=== PATIENT | female | born 1970 | race Two or more races ===

== ENCOUNTER 2025-05-30 15:21 | Inpatient (IN) | payer OTHER ==
[~2025-05-30] VITALS: Ht 160 cm; Wt 123.3 kg
[2025-05-30] MEDS: CefTRIAXone 1 GM/DEXTROSE 50 ML IV ONE (16:34)
[2025-05-30] MEDS: SODIUM CHLORIDE 0.9% 1,000 ML IV ONE (16:34)
[2025-05-30 16:35] LABS: PLATELET COUNT (AUTO) 264 K/uL (150-450); RED BLOOD CELL COUNT(AUTO) 4.22 MIL/uL (4.00-5.20); RED CELL DISTRIBUTION WIDTH 14.3 % (11.5-14.5); WHITE BLOOD COUNT (AUTO) 8.1 K/uL (4.5-11.0)
[2025-05-30 16:38] LABS: ERYTHROCYTE SEDIMENTATION RATE 67 MM/HR (0-30)
[2025-05-30 16:40] LABS: CALCIUM, TOTAL 8.9 mg/dL (8.8-10.5); CREATININE 0.68 mg/dL (0.60-1.30); GLOMERULAR FILTR. RATE CALC > 60 mL/min (>60); GLUCOSE,RANDOM 185 mg/dL (70-110); SODIUM SERUM 142 mmol/L (136-145); UREA NITROGEN, BLOOD 12 mg/dL (7-18)
[2025-05-30 16:42] LABS: C-REACTIVE PROTEIN QUANT 4.77 mg/dL (0.00-0.30)
[2025-05-30 16:50] LABS: GLUCOMETER DEV NAME(LOC) ERT.7; GLUCOSE,POINT OF CARE 175 MG/DL (70-110)
[2025-05-30 17:00] LABS: LACTIC ACID 0.9 mmol/L (0.4-2.0)
[2025-05-30 18:37] VITALS: BP 149/77; PULSE 79; RESP 19; TEMP 98.1; O2SAT 96
[2025-05-30 19:13] VITALS: BP 137/76; PULSE 74; RESP 18; TEMP 97.3; O2SAT 97
[2025-05-30] MEDS ORDERED: MAGNESIUM HYDROXIDE SUSPENSION 30 ML UDCUP PO PRN (19:15)
[2025-05-30] MEDS ORDERED: ZOLPIDEM TARTRATE 5 MG TABLET PO PRN (19:15)
[2025-05-30] MEDS ORDERED: BISACODYL 10 MG RECTAL RECTAL SUPPOSITORY PR PRN (19:15)
[2025-05-30] MEDS ORDERED: DEXTROSE 50%-WATER 25 GM/50 ML SYRINGE IVP PRN (19:15)
[2025-05-30] MEDS ORDERED: MORPHINE SULFATE 2 MG/ML SYRINGE IVP PRN (19:15)
[2025-05-30] MEDS ORDERED: ONDANSETRON HCL 4 MG/2 ML VIAL IVP PRN (19:15)
[2025-05-30] MEDS ORDERED: ACETAMINOPHEN 325 MG TABLET PO PRN (19:15)
[2025-05-30] MEDS: *CLINICAL-LEVOFLOXACIN IVPB DOSING CLINICAL ONE (19:21)
[2025-05-30] MEDS: LEVOFLOXACIN 750 MG/D5% WATER 150 ML IV SCH (20:27)
[2025-05-30] MEDS: DOCUSATE SODIUM 100 MG CAPSULE PO SCH (20:27)
[2025-05-30] MEDS: INSULIN LISPRO 100 UNITS/ML SQ PRN (21:07)
[2025-05-30] MEDS: HYDROCODONE/ACETAMINOPHEN 5-325 MG TABLET PO PRN (21:23)
[2025-05-30] MEDS: CLINDAMYCIN 600 MG/D5% WATER 50 ML IV SCH (21:57)
[2025-05-30] MEDS: HEPARIN SODIUM,PORCINE 5,000 UNITS/ML VIAL SQ SCH (23:16)
[2025-05-31] MEDS ORDERED: CARV25 PO (02:35)
[2025-05-31] MEDS ORDERED: LOSA-382 PO (02:35)
[2025-05-31 05:06] VITALS: BP 123/90; PULSE 81; RESP 18; TEMP 98.6; O2SAT 94
[2025-05-31 06:59] LABS: PLATELET COUNT (AUTO) 272 K/uL (150-450); RED BLOOD CELL COUNT(AUTO) 4.15 MIL/uL (4.00-5.20); RED CELL DISTRIBUTION WIDTH 14.3 % (11.5-14.5); WHITE BLOOD COUNT (AUTO) 8.2 K/uL (4.5-11.0)
[2025-05-31 07:13] LABS: CALCIUM, TOTAL 8.6 mg/dL (8.8-10.5); CREATININE 0.53 mg/dL (0.60-1.30); GLOMERULAR FILTR. RATE CALC > 60 mL/min (>60); GLUCOSE,RANDOM 134 mg/dL (70-110); SODIUM SERUM 142 mmol/L (136-145); UREA NITROGEN, BLOOD 10 mg/dL (7-18)
[2025-05-31 08:16] LABS: GLUCOMETER DEV NAME(LOC) 6N.2C; GLUCOSE,POINT OF CARE 195 MG/DL (70-110)
[2025-05-31 08:16] LABS: GLUCOMETER DEV NAME(LOC) 6N.2C; GLUCOSE,POINT OF CARE 139 MG/DL (70-110)
[2025-05-31] MEDS: PANTOPRAZOLE SODIUM 40 MG DR TABLET PO SCH (08:22)
[2025-05-31 08:23] VITALS: BP 128/74; PULSE 86; RESP 18; TEMP 98; O2SAT 95
[2025-05-31 11:55] LABS: GLUCOMETER DEV NAME(LOC) 6S.1D; GLUCOSE,POINT OF CARE 143 MG/DL (70-110)
[2025-05-31 20:00] LABS: GLUCOMETER DEV NAME(LOC) 6S.1D; GLUCOSE,POINT OF CARE 118 MG/DL (70-110)
[2025-05-31 20:58] VITALS: BP 146/72; PULSE 91; RESP 21; TEMP 98.6; O2SAT 94
[2025-05-31 22:20] LABS: GLUCOMETER DEV NAME(LOC) 6N.2C; GLUCOSE,POINT OF CARE 157 MG/DL (70-110)
[2025-06-01 04:07] LABS: HEPATITIS C AB (EIA) Non Reactive (Non Reactive)
[2025-06-01 04:12] VITALS: BP 123/63; PULSE 88; RESP 18; TEMP 98.8; O2SAT 96
[2025-06-01 06:41] LABS: PLATELET COUNT (AUTO) 274 K/uL (150-450); RED BLOOD CELL COUNT(AUTO) 4.36 MIL/uL (4.00-5.20); RED CELL DISTRIBUTION WIDTH 14.2 % (11.5-14.5); WHITE BLOOD COUNT (AUTO) 7.8 K/uL (4.5-11.0)
[2025-06-01 06:50] LABS: CALCIUM, TOTAL 9.3 mg/dL (8.8-10.5); CREATININE 0.66 mg/dL (0.60-1.30); GLOMERULAR FILTR. RATE CALC > 60 mL/min (>60); GLUCOSE,RANDOM 125 mg/dL (70-110); SODIUM SERUM 142 mmol/L (136-145); UREA NITROGEN, BLOOD 10 mg/dL (7-18)
[2025-06-01 07:16] LABS: GLUCOMETER DEV NAME(LOC) 6N.2C; GLUCOSE,POINT OF CARE 134 MG/DL (70-110)
[2025-06-01 08:06] VITALS: BP 106/54; PULSE 75; RESP 20; TEMP 98.1; O2SAT 95
[2025-06-01 11:41] LABS: GLUCOMETER DEV NAME(LOC) 6N.2C; GLUCOSE,POINT OF CARE 161 MG/DL (70-110)
[2025-06-01 17:45] LABS: GLUCOMETER DEV NAME(LOC) 6S.1D; GLUCOSE,POINT OF CARE 125 MG/DL (70-110)
[2025-06-01 20:48] VITALS: BP 133/74; PULSE 84; RESP 20; TEMP 98.8; O2SAT 95
[2025-06-02 03:25] LABS: GLUCOMETER DEV NAME(LOC) 6S.2; GLUCOSE,POINT OF CARE 149 MG/DL (70-110)
[2025-06-02 04:31] VITALS: BP 133/72; PULSE 78; RESP 18; TEMP 98.4; O2SAT 93
[2025-06-02 06:53] LABS: PLATELET COUNT (AUTO) 280 K/uL (150-450); RED BLOOD CELL COUNT(AUTO) 4.36 MIL/uL (4.00-5.20); RED CELL DISTRIBUTION WIDTH 14.1 % (11.5-14.5); WHITE BLOOD COUNT (AUTO) 7.8 K/uL (4.5-11.0)
[2025-06-02 07:09] LABS: CALCIUM, TOTAL 9.0 mg/dL (8.8-10.5); CREATININE 0.66 mg/dL (0.60-1.30); GLOMERULAR FILTR. RATE CALC > 60 mL/min (>60); GLUCOSE,RANDOM 126 mg/dL (70-110); SODIUM SERUM 140 mmol/L (136-145); UREA NITROGEN, BLOOD 11 mg/dL (7-18)
[2025-06-02 08:45] VITALS: BP 120/68; PULSE 78; RESP 18; TEMP 98.2; O2SAT 98
[2025-06-02] MEDS ORDERED: CLIN300C58 PO (09:55)
[2025-06-02] MEDS ORDERED: LEVO750T68 PO (09:56)
[2025-06-02] MEDS ORDERED: METF-1211 PO (09:57)
[2025-06-02 13:36] LABS: GLUCOMETER DEV NAME(LOC) 6S.1D; GLUCOSE,POINT OF CARE 148 MG/DL (70-110)
[2025-06-02 13:36] LABS: GLUCOMETER DEV NAME(LOC) 6N.2C; GLUCOSE,POINT OF CARE 125 MG/DL (70-110)
[2025-06-02 18:25] LABS: GLUCOMETER DEV NAME(LOC) 6N.2C; GLUCOSE,POINT OF CARE 141 MG/DL (70-110)
[2025-06-02 20:00] VITALS: BP 140/69; PULSE 87; RESP 18; TEMP 98.4; O2SAT 95
[2025-06-02 21:35] LABS: GLUCOMETER DEV NAME(LOC) 6N.2C; GLUCOSE,POINT OF CARE 150 MG/DL (70-110)
== END 2025-06-02 21:01 | DRG 601 ==
LOC: EMS 15:21 → EDH 16:54 → 6S 18:32
PROVIDERS: ADMIT Internal Medicine; ATTEND Internal Medicine
DX: N61.0 Mastitis without abscess (principal); I10 Essential (primary) hypertension; E11.9 Type 2 diabetes mellitus without complications; F32.A Depression, unspecified; E78.00 Pure hypercholesterolemia, unspecified; Z85.3 Personal history of malignant neoplasm of breast; Z79.84 Long term (current) use of oral hypoglycemic drugs; Z79.899 Other long term (current) drug therapy
CPT/HCPCS: 80048; 82962; 83036; 83605; 85025; 85651; 86140; 86803; 87040; 87340; 96365; 99285; J0696; J1644; J1956; J3490